=== PATIENT | female | born 1980 | race Two or more races ===

== ENCOUNTER → 2018-08-21 | Emergency (ER) | payer OTHER ==
[~2018-08-21] VITALS: Ht 167.6 cm; Wt 63.0 kg
[~2018-08-21] MED LIST: DICLOFENAC POTA50 MG PO; FOLIC ACID1 MG PO; INTEGRA CAPSUL1 EACH PO; INTESTINEX680 MG PO; PERCOCET 5-3251 EACH PO; PROTONIX40 MG PO; TRAM1TAB98 PO
== END | disposition home or self-care (01) ==
LOC: ER 00:35
DX: D49.89 Neoplasm of unspecified behavior of other specified sites (principal); R19.09 Other intra-abdominal and pelvic swelling, mass and lump; R10.31 Right lower quadrant pain; R10.32 Left lower quadrant pain
CPT/HCPCS: 72197

== ENCOUNTER → 2018-08-25 | Emergency (ER) | payer OTHER | END | disposition left against medical advice (07) | LOC: ER 03:43 | DX: Z53.20 Procedure and treatment not carried out because of patient's decision for unspecified reasons (principal) ==

== ENCOUNTER 2018-08-29 13:37 | Emergency (ER) | payer OTHER ==
[~2018-08-29] VITALS: Ht 167.6 cm; Wt 62.6 kg
== END 2018-08-29 15:55 | disposition home or self-care (01) ==
LOC: ER 13:37
DX: J11.1 Influenza due to unidentified influenza virus with other respiratory manifestations (principal); N83.291 Other ovarian cyst, right side

== ENCOUNTER 2018-09-03 11:50 | Inpatient (IN) | payer OTHER ==
[~2018-09-03] VITALS: Ht 167.6 cm; Wt 62.6 kg
[2018-09-09] MEDS ORDERED: INTEGRA CAPSUL1 EACH PO (13:26)
[2018-09-09] MEDS ORDERED: DOCUSATE SODIU100 MG PO (13:34)
== END 2018-09-08 16:55 | disposition home or self-care (01) | DRG 760 ==
LOC: ER 11:50 → SURH 21:18 → SEC-K 21:18 → SURH 23:41
PROVIDERS: ADMIT Internal Medicine
PROC: BW21Y0Z Computerized Tomography (CT Scan) of Abdomen and Pelvis using Other Contrast, Unenhanced and Enhanced (ICD-10-PCS; principal; 2018-09-03)
PROC: 4A033R1 Measurement of Arterial Saturation, Peripheral, Percutaneous Approach (ICD-10-PCS; 2018-09-03)
PROC: 8E0ZXY6 Isolation (ICD-10-PCS; 2018-09-04)
PROC: 4A12X4Z Monitoring of Cardiac Electrical Activity, External Approach (ICD-10-PCS; 2018-09-04)
PROC: 3E0F7GC Introduction of Other Therapeutic Substance into Respiratory Tract, Via Natural or Artificial Opening (ICD-10-PCS; 2018-09-04)
DX: N83.291 Other ovarian cyst, right side (principal); J90 Pleural effusion, not elsewhere classified; D68.8 Other specified coagulation defects; N39.0 Urinary tract infection, site not specified; R18.8 Other ascites; C18.4 Malignant neoplasm of transverse colon; C78.7 Secondary malignant neoplasm of liver and intrahepatic bile duct; K56.699 Other intestinal obstruction unspecified as to partial versus complete obstruction; C79.61 Secondary malignant neoplasm of right ovary; J09.X2 Influenza due to identified novel influenza A virus with other respiratory manifestations; Z53.09 Procedure and treatment not carried out because of other contraindication

== ENCOUNTER 2018-09-15 08:30 | Inpatient (IN) | payer OTHER ==
[~2018-09-15] VITALS: Ht 167.6 cm; Wt 59.0 kg
[~2018-09-15 08:30] MED LIST changes: +DOCUSATE SODIU100 MG PO
[2018-09-15] MEDS ORDERED: PEPCID40 MG PO (14:07)
[2018-09-15] MEDS ORDERED: PROVENTIL HFA6.7 GM IH (14:08)
[2018-09-15] MEDS ORDERED: ALBUTEROL2.5 MG/3 M IH (14:36)
[2018-09-15] MEDS ORDERED: IPRAT-ALBUT 0.5-3 ML IH (14:36)
== END 2018-09-19 13:18 | DRG 330 ==
LOC: OB/GYN 09-16 06:20 → O/R 09-16 06:20 → SURH 09-16 08:30 → OB/GYN 09-16 18:00
PROVIDERS: ADMIT Obstetrics & Gynecology Gynecologic Oncology
PROC: 0DBW0ZZ Excision of Peritoneum, Open Approach (ICD-10-PCS; 2018-09-16)
PROC: 0UT50ZZ Resection of Right Fallopian Tube, Open Approach (ICD-10-PCS; 2018-09-16)
PROC: 0UT00ZZ Resection of Right Ovary, Open Approach (ICD-10-PCS; 2018-09-16)
PROC: 0DT80ZZ Resection of Small Intestine, Open Approach (ICD-10-PCS; principal; 2018-09-16 21:00)
DX: C20 Malignant neoplasm of rectum (principal); C79.61 Secondary malignant neoplasm of right ovary; R97.1 Elevated cancer antigen 125 [CA 125]

== ENCOUNTER 2019-11-21 06:00 | Day surgery (SDC) | payer OTHER ==
[~2019-11-21 06:00] MED LIST changes: +ALBUTEROL2.5 MG/3 M IH; +IPRAT-ALBUT 0.5-3 ML IH; +PEPCID40 MG PO; +PROVENTIL HFA6.7 GM IH
[2019-11-21] MEDS ORDERED: DICLOFENAC SODI75 MG PO (08:07)
== END 2019-11-21 11:00 | disposition home or self-care (01) ==
LOC: CIR.AMB 06:00
DX: C18.4 Malignant neoplasm of transverse colon (principal)

== ENCOUNTER 2020-01-07 14:30 | Inpatient (IN) | payer OTHER ==
[~2020-01-07] VITALS: Ht 167.6 cm; Wt 64.9 kg
[~2020-01-07 14:30] MED LIST changes: +DICLOFENAC SODI75 MG PO
== END 2020-01-14 12:25 | disposition home or self-care (01) | DRG 982 ==
LOC: OB/GYN 01-09 07:15 → O/R 01-12 06:38 → SURH 01-12 07:15 → OB/GYN 01-12 15:30
PROVIDERS: ADMIT Obstetrics & Gynecology Gynecologic Oncology
PROC: 0UT64ZZ Resection of Left Fallopian Tube, Percutaneous Endoscopic Approach (ICD-10-PCS; 2020-01-12)
PROC: 0UT14ZZ Resection of Left Ovary, Percutaneous Endoscopic Approach (ICD-10-PCS; 2020-01-12)
PROC: 8E0W4CZ Robotic Assisted Procedure of Trunk Region, Percutaneous Endoscopic Approach (ICD-10-PCS; 2020-01-12)
PROC: 0UT94ZZ Resection of Uterus, Percutaneous Endoscopic Approach (ICD-10-PCS; principal; 2020-01-12 09:45)
DX: C19 Malignant neoplasm of rectosigmoid junction (principal); C79.62 Secondary malignant neoplasm of left ovary; N72 Inflammatory disease of cervix uteri

== ENCOUNTER 2020-01-09 11:54 | Outpatient (CLI) | payer OTHER | END 2020-01-09 15:00 | disposition home or self-care (01) | LOC: LAB 11:54 | DX: N39.0 Urinary tract infection, site not specified (principal) ==

== ENCOUNTER 2021-04-08 11:00 | Inpatient (IN) | payer OTHER ==
[~2021-04-08] VITALS: Ht 167.6 cm; Wt 68.5 kg
[2021-04-08] MEDS ORDERED: ESTRA PO (15:45)
[2021-04-08] MEDS ORDERED: PROGESTERONE PO (15:46)
[2021-04-11] MEDS ORDERED: ESTRADIOL2 MG (16:19)
[2021-04-11] MEDS ORDERED: PROGESTERONE200 MG (16:20)
[2021-04-15] MEDS ORDERED: PANTOPRAZOLE SO40 MG PO (09:20)
[2021-04-15] MEDS ORDERED: PERCOCET 5-3251 EACH PO (09:20)
[2021-04-15] MEDS ORDERED: INTESTINEX680 M1 PO (09:21)
== END 2021-04-15 10:26 | disposition home or self-care (01) | DRG 663 ==
LOC: O/R 04-11 07:05 → SURH 04-11 11:00
PROVIDERS: Obstetrics & Gynecology Gynecologic Oncology; Surgery; ADMIT Surgery; ATTEND Surgery
PROC: 0KB Muscles, Excision (ICD-10-PCS; 2021-04-11)
PROC: 0TBB0ZX Excision of Bladder, Open Approach, Diagnostic (ICD-10-PCS; principal; 2021-04-11 13:30)
PROC: 0DNW4ZZ Release Peritoneum, Percutaneous Endoscopic Approach (ICD-10-PCS; 2021-04-11 13:30)
PROC: 04CJ0ZZ Extirpation of Matter from Left External Iliac Artery, Open Approach (ICD-10-PCS; 2021-04-11 13:30)
DX: C79.11 Secondary malignant neoplasm of bladder (principal); C79.89 Secondary malignant neoplasm of other specified sites; C18.4 Malignant neoplasm of transverse colon; C76.3 Malignant neoplasm of pelvis; Z20.822 Contact with and (suspected) exposure to COVID-19; K66.0 Peritoneal adhesions (postprocedural) (postinfection); Z53.31 Laparoscopic surgical procedure converted to open procedure

== ENCOUNTER 2023-06-25 09:45 | Inpatient (IN) | payer OTHER ==
[~2023-06-25] VITALS: Ht 167.6 cm; Wt 70.8 kg
[~2023-06-25 09:45] MED LIST changes: +ESTRA PO; +ESTRADIOL2 MG; +INTESTINEX680 M1 PO; +PANTOPRAZOLE SO40 MG PO; +PROGESTERONE PO; +PROGESTERONE200 MG
[2023-07-02 15:53] LABS: HEMATOCRIT 38.9 % (36.0-45.00); HEMOGLOBIN 12.7 g/dL (12.0-15.00); MEAN CELL VOLUME 90.4 fL (80.00-100.00); MEAN CORPUSCULAR HEMOGLOBIN 29.6 pg (27.00-32.0); MEAN CORPUSCULAR HGB CONC 32.7 g/dl (32.0-36.0); PLATELET COUNT 248 K/uL (150-450); RED BLOOD COUNT 4.31 M/uL (4.00-6.00); RED CELL DISTRIBUTION WIDTH 12.5 % (11.5-14.5)
[2023-07-02 19:20] LABS: CALCIUM 8.5 mg/dL (8.5-10.1); CREATININE SERUM 1.11 mg/dL (0.55-1.02); GFR 53.4; POTASSIUM 4.08 mEq/L (3.5-5.1)
[2023-07-03 05:17] LABS: HEMATOCRIT 35.2 % (36.0-45.00); HEMOGLOBIN 11.8 g/dL (12.0-15.00); MEAN CELL VOLUME 89.6 fL (80.00-100.00); MEAN CORPUSCULAR HEMOGLOBIN 29.9 pg (27.00-32.0); MEAN CORPUSCULAR HGB CONC 33.4 g/dl (32.0-36.0); PLATELET COUNT 227 K/uL (150-450); RED BLOOD COUNT 3.93 M/uL (4.00-6.00); RED CELL DISTRIBUTION WIDTH 12.9 % (11.5-14.5)
[2023-07-03 05:37] LABS: CALCIUM 8.1 mg/dL (8.5-10.1); CREATININE SERUM 0.64 mg/dL (0.55-1.02); GFR 100.81; POTASSIUM 3.71 mEq/L (3.5-5.1)
== END 2023-07-04 12:25 | disposition home or self-care (01) | DRG 357 ==
LOC: OB/GYN 07-02 05:45 → O/R 07-02 05:45 → SURG 07-02 09:45 → OB/GYN 07-02 11:59 → SURG 07-02 15:45 → OB/GYN 07-04 12:25
PROVIDERS: Obstetrics & Gynecology; ADMIT Obstetrics & Gynecology Gynecologic Oncology; ATTEND Obstetrics & Gynecology Gynecologic Oncology
PROC: 07BC0ZZ Excision of Pelvis Lymphatic, Open Approach (ICD-10-PCS; 2023-07-02)
PROC: 0WBH0ZZ Excision of Retroperitoneum, Open Approach (ICD-10-PCS; 2023-07-02)
PROC: 07BD0ZZ Excision of Aortic Lymphatic, Open Approach (ICD-10-PCS; principal; 2023-07-02 15:45)
DX: C19 Malignant neoplasm of rectosigmoid junction (principal); C77.5 Secondary and unspecified malignant neoplasm of intrapelvic lymph nodes; C78.6 Secondary malignant neoplasm of retroperitoneum and peritoneum; C79.89 Secondary malignant neoplasm of other specified sites; Z20.822 Contact with and (suspected) exposure to COVID-19